=== PATIENT | female | born 1990 | race African-American/Black ===

== ENCOUNTER 2016-12-07 18:38 | Emergency (ER) | payer MEDICAID, OTHER ==
[~2016-12-07] VITALS: Ht 162.6 cm; Wt 127.0 kg
[2016-12-07] MEDS ORDERED: NORG1TAB53 PO (18:50)
[2016-12-07 21:54] VITALS: BP 127/78
== END 2016-12-07 23:47 | disposition home or self-care (01) ==
LOC: ER 18:51
DX: L03.012 Cellulitis of left finger (principal); J45.909 Unspecified asthma, uncomplicated; Z88.6 Allergy status to analgesic agent; Z88.8 Allergy status to other drugs, medicaments and biological substances
CPT/HCPCS: 99283; Z7610